=== PATIENT | male | born 1970 | race Caucasian/White ===

== ENCOUNTER 2018-11-07 09:28 | Emergency (ER) | payer OTHER ==
[~2018-11-07] VITALS: Ht 175.3 cm; Wt 83.9 kg
--- NOTE | 2018-11-07 10:06 | NUR ---
FABIENNE MAYES AT BEDSIDE FOR MSE.
[2018-11-07 10:34] LABS: BASOPHILS # (AUTO) 0.1 K/uL (0.0-8.0); BASOPHILS % (AUTO) 0.7 % (0.0-2.0); EOSINOPHILS # (AUTO) 0.1 K/uL (0.0-0.7); HEMATOCRIT 38.6 % (36.7-47.1); LYMPHOCYTES # (AUTO) 1.9 K/uL (20.0-40.0); LYMPHOCYTES % (AUTO) 25.3 % (20.5-51.5); MEAN CORPUSCULAR HEMOGLOBIN 30.5 uug (23.8-33.4); MEAN CORPUSCULAR HGB CONC 34 g/dL (32.5-36.3); MEAN CORPUSCULAR VOLUME 90.3 fL (73.0-96.2); MONOCYTES # (AUTO) 0.8 K/uL (2.0-10.0); MONOCYTES % (AUTO) 11.1 % (0.0-11.0); NEUTROPHILS # (AUTO) 4.6 K/uL (1.8-8.9); NEUTROPHILS % (AUTO) 61.9 % (38.5-71.5); PLATELET COUNT (AUTO) 305 K/uL (152-348); RED BLOOD CELL COUNT(AUTO) 4.27 MIL/uL (4.06-5.63); WHITE BLOOD COUNT (AUTO) 7.5 K/uL (3.6-10.2)
--- NOTE | 2018-11-07 10:34 | NUR ---
PT TAKEN TO RADIOLOGY FOR IMAGING.
--- NOTE | 2018-11-07 10:39 | NUR ---
PT BACK IN ER FROM RADIOLOGY.
[2018-11-07 10:43] LABS: POTASSIUM 4.6 mmol/L (3.5-5.1)
[2018-11-07 10:54] LABS: BILIRUBIN,DIRECT 0.1 mg/dL (0.0-0.2); BILIRUBIN,TOTAL 0.4 mg/dL (0.2-1.0); TOTAL PROTEIN, SERUM 7.5 g/dL (6.4-8.2)
--- NOTE | 2018-11-07 10:55 | NUR ---
PT PROVIDED W/ FOOD, REFUSES WATER AT THIS TIME.
--- NOTE | 2018-11-07 11:48 | NUR ---
CALLED FOR RN FLOAT CONSULT, NO ANSWER. AWAITING CALLBACK.
--- NOTE | 2018-11-07 11:59 | NUR ---
FABIENNE MAYES AT BEDSIDE FOR PT UPDATE.
--- NOTE | 2018-11-07 12:05 | NUR ---
PT REFUSES SS CONSULT.
--- NOTE | 2018-11-07 12:08 | NUR ---
Patient given written and verbal discharge instructions. Patient verbalizes understanding of instructions. Patient is ambulatory with steady gait. Refuses offer of [facility] placement. Patient given list of available shelters in surrounding area. ALL BELONGINGS W/ PT. PT SELF-AMBULATED W/O DIFFICULTY.
== END 2018-11-07 12:11 | disposition home or self-care (01) ==
LOC: ER 09:28
DX: R04.2 Hemoptysis (principal); E78.5 Hyperlipidemia, unspecified; E03.9 Hypothyroidism, unspecified; Z59.0 Homelessness
CPT/HCPCS: 36415; 70360; 71045; 85025; 85730; A4663